=== PATIENT | female | born 1995 | race Caucasian/White ===

== ENCOUNTER 2020-11-17 07:02 | Day surgery (SDC) | payer BC, OTHER ==
[~2020-11-17] VITALS: Ht 170.2 cm; Wt 96.2 kg
[2020-11-17 07:46] LABS: HCG SERUM NEGATIVE (NEGATIVE)
[2020-11-17 07:54] LABS: HEMATOCRIT 37.5 % (36.0-48.0); HEMOGLOBIN 12.8 g/dL (12-16); MCH 30.1 pg (26.0-34.0); MCHC 34.1 g/dL (31.0-37.0); MCV 88.2 fL (80.0-100.0); MEAN PLATELET VOLUME 10.3 fL (7.4-10.4); RBC 4.25 10x6/uL (4.00-5.40); WBC 7.1 10x3/uL (4.8-10.8)
[2020-11-17 09:02] VITALS: BP 142/55; Ht 170.2 cm; Wt 96.2 kg
--- NOTE | 2020-11-17 09:08 | NUR ---
PT STATES SHE HAS DEPRESSION AND HAS HAD THOUGHTS OF HARMING HERSELF IN JUNE 2020. PT IS ATTENDING THERAPY AND DECLINES ANY FURTHER INTERVENTION AT THIS TIME. PT STATES THERAPY IS HELPING HER.
--- NOTE | 2020-11-17 16:04 | NUR ---
IV D/C'D WITH CANNULA INTACT, PRESSURE HELD AND DRSG PLACED. DISCHARGE INSTRUCTIONS GIVEN AND PT VERBALIZED AN UNDERSTANDING. SITZ BATH AND MAYRA PADS SENT WITH PT.
== END 2020-11-17 14:40 | disposition home or self-care (01) ==
LOC: D.OPS 07:02
PROVIDERS: Anesthesiology; ATTEND Obstetrics & Gynecology Maternal & Fetal Medicine
DX: R10.2 Pelvic and perineal pain (principal); Q89.9 Congenital malformation, unspecified